=== PATIENT | female | born 1980 | race Caucasian/White ===

== ENCOUNTER 2017-06-04 16:45 | Emergency (ER) | payer MEDICAID, OTHER ==
[2017-06-04 16:53] VITALS: TEMP 98.6
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
[2017-06-04 19:24] VITALS: BP 133/91; PULSE 78; RESP 18; O2SAT 99
== END 2017-06-04 19:24 | disposition home or self-care (01) ==
DX: M79.651 Pain in right thigh (principal); F17.200 Nicotine dependence, unspecified, uncomplicated